=== PATIENT | female | born 1945 | race Native Hawaiian/Other Pacific Islander ===

== ENCOUNTER 2016-06-05 07:32 | Outpatient (CLI) | payer OTHER, MEDICARE ==
[~2016-06-05 07:32] MED LIST: ALBU90AE13 INH; ALPR0.2566 PO; ASA LOW STR81 MG PO; CIPRO500 MG PO; HYDROCHLOROT12.5 M1 PO; LISI5TAB10 PO; NITR100C56 PO; TRIM800T12 PO
[2016-06-05 08:54] LABS: PLATELET COUNT 216 K/uL (152-353)
[2016-06-05 08:55] LABS: POTASSIUM 3.5 mmol/L (3.6-5.2); SODIUM 139 mmol/L (136-145)
== END 2016-06-05 19:29 | disposition home or self-care (01) ==
LOC: LABW 07:32
PROVIDERS: Family Medicine
DX: I10 Essential (primary) hypertension (principal); E03.8 Other specified hypothyroidism; R73.02 Impaired glucose tolerance (oral); Z78.0 Asymptomatic menopausal state; E55.9 Vitamin D deficiency, unspecified
CPT/HCPCS: 36415; 80053; 80061; 81000; 82043; 82306; 82570; 84439; 84443; 85027

== ENCOUNTER 2017-12-14 08:54 | Outpatient (CLI) | payer OTHER, MEDICARE | END 2017-12-14 19:55 | disposition home or self-care (01) | LOC: RAD 08:54 | DX: N95.1 Menopausal and female climacteric states (principal); Z78.0 Asymptomatic menopausal state ==

== ENCOUNTER 2018-03-26 07:11 | Outpatient (CLI) | payer OTHER, MEDICARE ==
[2018-03-26 07:34] LABS: PLATELET COUNT 216 K/uL (152-353)
[2018-03-26 08:00] LABS: POTASSIUM 3.7 mmol/L (3.6-5.2)
== END 2018-03-26 22:36 | disposition home or self-care (01) ==
LOC: LABW 07:11
PROVIDERS: Family Medicine
DX: E03.9 Hypothyroidism, unspecified (principal); E55.9 Vitamin D deficiency, unspecified; I10 Essential (primary) hypertension; R73.03 Prediabetes; J45.909 Unspecified asthma, uncomplicated
CPT/HCPCS: 36415; 80053; 80061; 81000; 82306; 83036; 84439; 84443; 85027

== ENCOUNTER 2019-03-14 16:12 | Outpatient (CLI) | payer OTHER, MEDICARE | END 2019-03-14 19:38 | disposition home or self-care (01) | LOC: RAD 16:12 | DX: M25.561 Pain in right knee (principal); M25.562 Pain in left knee ==

== ENCOUNTER 2019-04-14 13:53 | Emergency (ER) | payer OTHER, MEDICARE ==
[~2019-04-14] VITALS: Ht 170.2 cm; Wt 101.6 kg
[2019-04-14 14:00] VITALS: BP 186/94; TEMP 98.3
== END 2019-04-14 14:21 | disposition home or self-care (01) ==
LOC: ED 13:53
DX: R06.02 Shortness of breath (principal)
CPT/HCPCS: 99281

== ENCOUNTER 2019-08-25 10:31 | Outpatient (CLI) | payer OTHER, MEDICARE | END 2019-08-25 21:52 | disposition home or self-care (01) | LOC: RAD 10:31 | DX: N39.0 Urinary tract infection, site not specified (principal); R10.31 Right lower quadrant pain | CPT/HCPCS: 81000; 87077; 87086; 87088; 87186 ==

== ENCOUNTER 2020-01-04 12:24 | Observation (INO) | payer OTHER, MEDICARE ==
[~2020-01-04] VITALS: Ht 170.2 cm; Wt 102.7 kg
[2020-01-04 13:30] VITALS: BP 163/83; TEMP 98.1
[2020-01-04 14:06] LABS: PLATELET COUNT 205 K/uL (152-353)
[2020-01-04 14:18] LABS: POTASSIUM 3.7 mmol/L (3.6-5.2)
[2020-01-04 14:48] VITALS: BP 163/83; TEMP 98.1; Ht 170.2 cm; Wt 102.7 kg
[2020-01-04] MEDS ORDERED: LEVO0.0218 PO (16:21)
[2020-01-04] MEDS ORDERED: HYDROCHLOROT12.5 M1 PO (16:22)
[2020-01-04 17:00] VITALS: BP 151/79; TEMP 98.3
[2020-01-04 20:00] VITALS: BP 137/68; TEMP 98.3
[2020-01-05 00:20] VITALS: BP 121/70; TEMP 98
[2020-01-05 04:00] VITALS: BP 140/72; TEMP 98
[2020-01-05 08:00] VITALS: BP 143/79; TEMP 97.8
[2020-01-05 12:00] VITALS: BP 148/66; TEMP 97.9
[2020-01-05 16:00] VITALS: BP 133/71; TEMP 97.8
== END 2020-01-05 17:30 | disposition home or self-care (01) ==
LOC: MED/SURG 12:24
PROVIDERS: ADMIT Family Medicine; ATTEND Family Medicine
DX: K80.80 Other cholelithiasis without obstruction (principal); N39.0 Urinary tract infection, site not specified; K92.1 Melena; I10 Essential (primary) hypertension; E03.8 Other specified hypothyroidism; K43.9 Ventral hernia without obstruction or gangrene; K40.20 Bilateral inguinal hernia, without obstruction or gangrene, not specified as recurrent
CPT/HCPCS: 80053; 81000; 82150; 82272; 83690; 85027; 87635; 99220; G0378; G0379; J0295; J3490; Q9963; U0003

== ENCOUNTER 2021-03-26 08:27 | Outpatient (CLI) | payer OTHER, MEDICARE ==
[~2021-03-26 08:27] MED LIST changes: +LEVO0.0218 PO
[2021-03-26 09:31] LABS: PLATELET COUNT 216 K/uL (152-353)
[2021-03-26 09:40] LABS: POTASSIUM 3.7 mmol/L (3.6-5.2)
== END 2021-03-26 19:16 | disposition home or self-care (01) ==
LOC: LABW 08:27
PROVIDERS: ATTEND Family Medicine
DX: M54.42 Lumbago with sciatica, left side (principal); T14.8XXA Other injury of unspecified body region, initial encounter; Y92.9 Unspecified place or not applicable; I10 Essential (primary) hypertension; E03.8 Other specified hypothyroidism; R73.03 Prediabetes; E55.9 Vitamin D deficiency, unspecified
CPT/HCPCS: 36415; 80053; 80061; 81000; 82306; 83036; 84439; 84443; 84550; 85027

== ENCOUNTER 2021-03-28 09:59 | Observation (INO) | payer OTHER, MEDICARE ==
[~2021-03-28] VITALS: Ht 170.2 cm; Wt 102.2 kg
[2021-03-28 11:07] LABS: PLATELET COUNT 209 K/uL (152-353)
[2021-03-28 11:29] LABS: POTASSIUM 3.7 mmol/L (3.6-5.2)
[2021-03-28 11:36] LABS: PARTIAL THROMBOPLASTIN TIME 24.7 SECONDS (24.5-33.6)
[2021-03-28 17:25] VITALS: BP 152/83; TEMP 98.3; Ht 170.2 cm; Wt 102.2 kg
[2021-03-28 20:00] VITALS: BP 114/61; TEMP 97.4
[2021-03-29] VITALS: BP 141/69; TEMP 97.9
[2021-03-29 04:00] VITALS: BP 134/71; TEMP 97.7
[2021-03-29 05:00] LABS: PLATELET COUNT 186 K/uL (152-353)
[2021-03-29 05:20] LABS: POTASSIUM 3.3 mmol/L (3.6-5.2)
[2021-03-29 08:00] VITALS: BP 159/66; TEMP 97.6
[2021-03-29 12:00] VITALS: BP 125/69; TEMP 97.9
== END 2021-03-29 16:35 | disposition home or self-care (01) ==
LOC: MED/SURG 09:59
PROVIDERS: ADMIT Family Medicine; ATTEND Family Medicine
DX: R60.0 Localized edema (principal); N17.8 Other acute kidney failure; I10 Essential (primary) hypertension; R73.03 Prediabetes; E78.49 Other hyperlipidemia; J44.9 Chronic obstructive pulmonary disease, unspecified; K21.9 Gastro-esophageal reflux disease without esophagitis; E03.8 Other specified hypothyroidism
CPT/HCPCS: 36415; 80053; 81000; 83735; 83880; 84436; 84443; 84484; 85027; 85610; 85730; 87635; 93005; 96372; 96374; 96375; 99220; G0378; G0379; J1650; J1940; J3490; U0003

== ENCOUNTER 2021-04-03 07:18 | Outpatient (CLI) | payer OTHER, MEDICARE ==
[2021-04-03 08:17] LABS: POTASSIUM 3.7 mmol/L (3.6-5.2)
== END 2021-04-03 18:54 | disposition home or self-care (01) ==
LOC: LABW 07:18
PROVIDERS: ATTEND Student in an Organized Health Care Education/Training Program
DX: R94.4 Abnormal results of kidney function studies (principal); N17.8 Other acute kidney failure; I10 Essential (primary) hypertension; E79.0 Hyperuricemia without signs of inflammatory arthritis and tophaceous disease; R80.8 Other proteinuria; N25.81 Secondary hyperparathyroidism of renal origin; E55.9 Vitamin D deficiency, unspecified
CPT/HCPCS: 36415; 80053; 80074; 81000; 82306; 82570; 83036; 83516; 83735; 83970; 84100; 84155; 84165; 84550; 85049; 86160; 86255; 86592; 87535; G0432

== ENCOUNTER 2021-04-19 10:20 | Outpatient (CLI) | payer OTHER, MEDICARE ==
[2021-04-19 11:07] LABS: POTASSIUM 3.8 mmol/L (3.6-5.2)
== END 2021-04-19 20:02 | disposition home or self-care (01) ==
LOC: LABW 10:20
PROVIDERS: ATTEND Internal Medicine Nephrology
DX: R60.0 Localized edema (principal)
CPT/HCPCS: 36415; 80048

== ENCOUNTER 2021-05-04 10:11 | Outpatient (CLI) | payer OTHER, MEDICARE ==
[2021-05-04 12:03] LABS: PLATELET COUNT 231 K/uL (152-353)
[2021-05-04 12:09] LABS: POTASSIUM 4.5 mmol/L (3.6-5.2)
== END 2021-05-04 19:35 | disposition home or self-care (01) ==
LOC: LABW 10:11
PROVIDERS: ATTEND Family Medicine
DX: L03.90 Cellulitis, unspecified (principal); R51.9 Headache, unspecified; N17.9 Acute kidney failure, unspecified; I10 Essential (primary) hypertension
CPT/HCPCS: 36415; 80053; 85027

== ENCOUNTER 2021-06-17 10:19 | Outpatient (CLI) | payer OTHER, MEDICARE ==
[2021-06-17 11:18] LABS: POTASSIUM 2.8 mmol/L (3.6-5.2)
== END 2021-06-17 18:57 | disposition home or self-care (01) ==
LOC: LABW 10:19
PROVIDERS: ATTEND Nuclear Medicine Nuclear Cardiology
DX: R60.0 Localized edema (principal); N18.9 Chronic kidney disease, unspecified
CPT/HCPCS: 36415; 80053; 83735; 84439; 84443

== ENCOUNTER 2021-06-27 12:35 | Outpatient (CLI) | payer OTHER, MEDICARE ==
[2021-06-27 13:49] LABS: POTASSIUM 3.3 mmol/L (3.6-5.2)
== END 2021-06-27 19:04 | disposition home or self-care (01) ==
LOC: LABW 12:35
PROVIDERS: ATTEND Nuclear Medicine Nuclear Cardiology
DX: E83.51 Hypocalcemia (principal)
CPT/HCPCS: 36415; 80053; 83735

== ENCOUNTER 2021-08-01 08:31 | Outpatient (CLI) | payer OTHER, MEDICARE ==
[2021-08-01 09:12] LABS: POTASSIUM 3.3 mmol/L (3.6-5.2)
== END 2021-08-01 19:13 | disposition home or self-care (01) ==
LOC: LABW 08:31
PROVIDERS: ATTEND Nuclear Medicine Nuclear Cardiology
DX: E87.6 Hypokalemia (principal); R60.0 Localized edema; N18.32 Chronic kidney disease, stage 3b
CPT/HCPCS: 36415; 80048; 83735

== ENCOUNTER 2021-08-26 07:43 | Outpatient (CLI) | payer OTHER, MEDICARE ==
[2021-08-26 08:09] LABS: POTASSIUM 3.4 mmol/L (3.6-5.2)
== END 2021-08-26 18:57 | disposition home or self-care (01) ==
LOC: LABW 07:43
PROVIDERS: ATTEND Nuclear Medicine Nuclear Cardiology
DX: N18.32 Chronic kidney disease, stage 3b (principal); R60.9 Edema, unspecified; E87.6 Hypokalemia
CPT/HCPCS: 36415; 80048; 83735

== ENCOUNTER 2021-10-16 08:22 | Outpatient (CLI) | payer OTHER, MEDICARE ==
[2021-10-16 08:51] LABS: PLATELET COUNT 210 K/uL (152-353)
== END 2021-10-16 18:55 | disposition home or self-care (01) ==
LOC: LABW 08:22
PROVIDERS: ATTEND Nuclear Medicine Nuclear Cardiology
DX: I12.9 Hypertensive chronic kidney disease with stage 1 through stage 4 chronic kidney disease, or unspecified chronic kidney disease (principal); N18.2 Chronic kidney disease, stage 2 (mild); E03.8 Other specified hypothyroidism; E55.9 Vitamin D deficiency, unspecified
CPT/HCPCS: 80053; 80061; 82306; 84439; 84443; 85027

== ENCOUNTER 2021-10-24 08:21 | Outpatient (CLI) | payer OTHER, MEDICARE ==
[2021-10-24 15:24] LABS: POTASSIUM 3.5 mmol/L (3.6-5.2)
== END 2021-10-24 20:54 | disposition home or self-care (01) ==
LOC: LABW 08:21
PROVIDERS: ATTEND Nuclear Medicine Nuclear Cardiology
DX: E87.6 Hypokalemia (principal)
CPT/HCPCS: 36415; 80048

== ENCOUNTER 2021-11-11 08:15 | Emergency (ER) | payer OTHER, MEDICARE ==
[~2021-11-11] VITALS: Ht 170.2 cm; Wt 102.1 kg
[2021-11-11 08:18] VITALS: TEMP 98
[2021-11-11 09:08] LABS: PLATELET COUNT 206 K/uL (152-353)
[2021-11-11 09:14] LABS: POTASSIUM 2.9 mmol/L (3.6-5.2)
[2021-11-11 10:57] VITALS: BP 137/74
== END 2021-11-11 11:00 | disposition home or self-care (01) ==
LOC: ED 08:15
PROVIDERS: Emergency Medicine Emergency Medical Services
DX: M79.18 Myalgia, other site (principal); E87.6 Hypokalemia
CPT/HCPCS: 80048; 84484; 85027; 93005; 99283

== ENCOUNTER 2021-11-13 08:39 | Outpatient (CLI) | payer OTHER, MEDICARE ==
[2021-11-13 11:24] LABS: POTASSIUM 3.2 mmol/L (3.6-5.2)
== END 2021-11-13 23:21 | disposition home or self-care (01) ==
LOC: LABW 08:39
PROVIDERS: ATTEND Nuclear Medicine Nuclear Cardiology
DX: E87.6 Hypokalemia (principal)
CPT/HCPCS: 36415; 80053; 83735

== ENCOUNTER 2022-02-04 08:07 | Outpatient (CLI) | payer OTHER, MEDICARE ==
[2022-02-04 08:29] LABS: POTASSIUM 3.3 mmol/L (3.6-5.2)
== END 2022-02-04 19:01 | disposition home or self-care (01) ==
LOC: LABW 08:07
PROVIDERS: ATTEND Nuclear Medicine Nuclear Cardiology
DX: E87.6 Hypokalemia (principal)
CPT/HCPCS: 36415; 80048; 83735

== ENCOUNTER 2022-03-06 08:38 | Outpatient (CLI) | payer OTHER, MEDICARE ==
[2022-03-06 09:12] LABS: POTASSIUM 3.5 mmol/L (3.6-5.2)
== END 2022-03-06 18:56 | disposition home or self-care (01) ==
LOC: LABW 08:38
PROVIDERS: ATTEND Nuclear Medicine Nuclear Cardiology
DX: E87.6 Hypokalemia (principal)
CPT/HCPCS: 36415; 80053; 83735

== ENCOUNTER 2022-04-29 08:29 | Outpatient (CLI) | payer OTHER, MEDICARE ==
[2022-04-29 08:49] LABS: PLATELET COUNT 244 K/uL (152-353)
[2022-04-29 10:35] LABS: POTASSIUM 3.6 mmol/L (3.6-5.2)
== END 2022-04-29 19:25 | disposition home or self-care (01) ==
LOC: LABW 08:29
PROVIDERS: ATTEND Internal Medicine Nephrology
DX: I12.9 Hypertensive chronic kidney disease with stage 1 through stage 4 chronic kidney disease, or unspecified chronic kidney disease (principal); N18.32 Chronic kidney disease, stage 3b; R80.8 Other proteinuria; N25.81 Secondary hyperparathyroidism of renal origin; E55.9 Vitamin D deficiency, unspecified; R94.6 Abnormal results of thyroid function studies; D50.8 Other iron deficiency anemias; E78.2 Mixed hyperlipidemia
CPT/HCPCS: 36415; 80053; 80061; 82306; 82570; 83970; 84100; 84156; 85027

== ENCOUNTER 2022-06-27 08:28 | Outpatient (CLI) | payer OTHER, MEDICARE ==
[2022-06-27 09:09] LABS: PLATELET COUNT 228 K/uL (152-353)
[2022-06-27 09:34] LABS: POTASSIUM 3.4 mmol/L (3.6-5.2)
== END 2022-06-27 19:09 | disposition home or self-care (01) ==
LOC: LABW 08:28
PROVIDERS: ATTEND Internal Medicine Nephrology
DX: I12.9 Hypertensive chronic kidney disease with stage 1 through stage 4 chronic kidney disease, or unspecified chronic kidney disease (principal); N18.32 Chronic kidney disease, stage 3b; R80.8 Other proteinuria; N25.81 Secondary hyperparathyroidism of renal origin; E55.9 Vitamin D deficiency, unspecified
CPT/HCPCS: 36415; 80053; 80061; 82306; 82570; 83970; 84100; 84156; 85027

== ENCOUNTER 2022-07-25 09:21 | Outpatient (CLI) | payer OTHER, MEDICARE | END 2022-07-25 19:17 | disposition home or self-care (01) | LOC: CT 09:21 | PROVIDERS: ATTEND Nuclear Medicine Nuclear Cardiology | DX: R10.2 Pelvic and perineal pain (principal); M25.559 Pain in unspecified hip; M54.59 Other low back pain ==

== ENCOUNTER 2022-09-02 09:41 | Outpatient (CLI) | payer OTHER, MEDICARE ==
[2022-09-02 09:59] LABS: PLATELET COUNT 207 K/uL (152-353)
[2022-09-02 10:14] LABS: POTASSIUM 3.2 mmol/L (3.6-5.2)
== END 2022-09-02 19:13 | disposition home or self-care (01) ==
LOC: LABW 09:41
PROVIDERS: ATTEND Nuclear Medicine Nuclear Cardiology
DX: E83.42 Hypomagnesemia (principal); E11.9 Type 2 diabetes mellitus without complications; E78.49 Other hyperlipidemia
CPT/HCPCS: 36415; 80053; 80061; 83036; 83735; 84439; 84443; 85027

== ENCOUNTER → 2022-09-22 | Outpatient (CLI) | payer OTHER, MEDICARE ==
[2022-09-22 08:55] LABS: PLATELET COUNT 244 K/uL (152-353)
[2022-09-22 14:25] LABS: POTASSIUM 3.6 mmol/L (3.6-5.2)
== END ==
LOC: LABW 08:29
PROVIDERS: ATTEND Internal Medicine Nephrology
DX: I12.9 Hypertensive chronic kidney disease with stage 1 through stage 4 chronic kidney disease, or unspecified chronic kidney disease (principal); N18.32 Chronic kidney disease, stage 3b; E79.0 Hyperuricemia without signs of inflammatory arthritis and tophaceous disease; R80.8 Other proteinuria; N25.81 Secondary hyperparathyroidism of renal origin; E55.9 Vitamin D deficiency, unspecified; R94.6 Abnormal results of thyroid function studies; D50.8 Other iron deficiency anemias; E78.2 Mixed hyperlipidemia; Z79.899 Other long term (current) drug therapy
CPT/HCPCS: 36415; 80053; 80061; 82306; 82570; 83970; 84100; 84156; 85027